=== PATIENT | female | born 1955 | race Caucasian/White ===

== ENCOUNTER 2018-11-09 16:17 | Emergency (ER) | payer OTHER ==
[~2018-11-09] VITALS: Ht 167.6 cm; Wt 66.0 kg
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
--- NOTE | 2018-11-09 16:45 | NUR ---
PT IN XRAY AT THIS TIME.
--- NOTE | 2018-11-09 17:23 | NUR ---
PT RESTING IN [facility]. PT AOX4. RESPS EVEN AND UNLABORED. PT'S FAMILY AT BEDSIDE. BP AND SPO2 MONITORS IN PLACE. CALL LIGHT WITHIN REACH. AWAITING DC.
[2018-11-09 17:25] VITALS: BP 104/67
--- NOTE | 2018-11-09 17:25 | NUR ---
EDT APPLIED SLING AT BEDSIDE AT THIS TIME. PT TOLERATED WELL.
[2018-11-09] MEDS ORDERED: OXYcodone/APAP 10/325MG TABLET PO ONE (17:30)
--- NOTE | 2018-11-09 17:30 | NUR ---
PT'S PAIN LEVEL INCREASED 6/10 AT THIS TIME. EDMD ROM AWARE. AWAITING MED ORDER.
[2018-11-09] MEDS ORDERED: OXYcodone/APAP 10/325MG TABLET ONE (17:36)
--- NOTE | 2018-11-09 17:42 | NUR ---
PT MEDICATED PER EMAR. PT TOLERATED WELL. PT AOX4. RESPS EVEN AND UNLABORED.
--- NOTE | 2018-11-09 17:48 | NUR ---
TASK RN: DC EDUCATION PROVIDED, PT DEMONSTRATES UNDERSTANDING. PT AMBULATED STEADILY TO DC WITH RN AND FAMILY. FAMILY TO TRANSPORT PT HOME.
== END 2018-11-09 17:57 | disposition home or self-care (01) ==
LOC: ED 17:51
DX: S42.292A Other displaced fracture of upper end of left humerus, initial encounter for closed fracture (principal); W19.XXXA Unspecified fall, initial encounter; Y93.89 Activity, other specified; Y92.89 Other specified places as the place of occurrence of the external cause; Y99.8 Other external cause status
CPT/HCPCS: 99283

== ENCOUNTER 2020-07-31 13:18 | Inpatient (IN) | payer OTHER ==
[~2020-07-31] VITALS: Ht 167.6 cm; Wt 67.0 kg
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
[2020-07-31] MEDS ORDERED: HYDROcodone/APAP 5/325 TABLET ONE (14:23)
[2020-07-31] MEDS ORDERED: HYDROcodone/APAP 5/325 TABLET PO ONE (14:30)
--- NOTE | 2020-07-31 15:10 | NUR ---
PT SITTING UPRIGHT WITH AT BEDSIDE. PT ON CELL PHONE. AARON PATEL AND [place] AT BEDSIDE TO APPLY KNEE IMMOBILIZER. ERP AT BEDSIDE TO DISCUSS D/C PLAN VS SURGERY. PT DENIES ANY NEEDS AT THIS TIME, CALL LIGHT WITHIN REACH, FALL PRECAUTIONS IN PLACE.
--- NOTE | 2020-07-31 15:50 | NUR ---
PT REFUSES ADDITONAL PAIN MEDICATION AND IV INSERTION AT THIS POINT.
--- NOTE | 2020-07-31 16:11 | NUR ---
PT SITTING UP IN [facility], RETURNED FROM CT. PT STATES PAIN REMAINS THE SAME BUT DENIES ADDITIONAL MEDICATION AT THIS TIME. PT DECLINES ANY ADDITIONAL NEEDS AT THIS TIME, FALL PRECAUTIONS IN PLACE, CALL LIGHT WITHIN REACH.
[2020-07-31 16:30] LABS: BASOPHILS # (AUTO) 0.03 x10^3/uL (0-0.1); BASOPHILS % (AUTO) 0 % (0-1); EOSINOPHILS % (AUTO) 1 % (1-7); LYMPHOCYTES # (AUTO) 0.77 x10^3/uL (1-3.4); LYMPHOCYTES % (AUTO) 8 % (22-44); MD NO; MEAN CORPUSCULAR HEMOGLOBIN 30.6 pg (27.0-34.8); MEAN CORPUSCULAR HGB CONC 33.7 g/dL (32.4-35.8); MEAN PLATELET VOLUME 8.6 fL (7.4-10.4); MONOCYTES # (AUTO) 0.59 x10^3/uL (0.2-0.8); MONOCYTES % (AUTO) 6 % (2-9); NEUTROPHILS # (AUTO) 8.66 x10^3/uL (1.8-6.8); NEUTROPHILS % (AUTO) 85 % (42-75); PLATELET COUNT 213 x10^3/uL (130-400); RED BLOOD COUNT 4.38 x10^6/uL (3.82-5.3); RED CELL DISTRIBUTION WIDTH 13.7 % (9.6-15.2)
[2020-07-31 16:36] LABS: ALBUMIN 4.1 g/dL (3.4-5.0); ANION GAP 5 mmol/L (5-15); CALCIUM 9.3 mg/dL (8.5-10.1); CHLORIDE 108 mmol/L (98-107); CREATININE 0.88 mg/dL (0.55-1.02)
[2020-07-31 16:37] LABS: INTERNATIONAL NORMALIZED RATIO 1.04 (0.93-1.1); PROTHROMBIN TIME 10.7 Seconds (9.6-11.5)
--- NOTE | 2020-07-31 17:00 | NUR ---
PT SITTING UPRIGHT IN GURNEY CONVERSING WITH AND ERP AT BEDSIDE. PT COMPLAINS OF INCREASED PAIN, MD NOTIFIED, WILL MEDICATE PER EMAR. PT DRESSED IN GOWN AND WARM BLAKET PROVIDED. CALL LIGHT WITHIN REACH, FALL PRECAUTIONS IN PLACE.
[2020-07-31] MEDS ORDERED: ONDANSETRON ODT 4 MG PO PRN (17:30)
[2020-07-31] MEDS ORDERED: ACETAMINOPHEN 325 MG TABLET PO PRN (17:30)
[2020-07-31] MEDS ORDERED: SENNA/DOCUSATE TABLET PO PRN (17:30)
[2020-07-31] MEDS ORDERED: POLYETHYLENE GLYCOL 17 GM PACKET PO PRN (17:30)
[2020-07-31] MEDS ORDERED: ONDANSETRON 2MG/ML, 2ML IVPush PRN (17:30)
--- NOTE | 2020-07-31 17:31 | NUR ---
Pt to be admitted to 4N/SURG, room 476. Report called to SHAVON.
[2020-07-31] MEDS ORDERED: MORPHINE SULFATE 4 MG/ML, 1ML ONE (18:03)
[2020-07-31] MEDS: MORPHINE SULFATE 4 MG/ML, 1ML IVPush PRN ×2 (18:05→21:52)
[2020-07-31 18:42] VITALS: BP 111/75
[2020-07-31] MEDS: HYDROcodone/APAP 5/325 TABLET PO PRN (19:50)
[2020-08-01] MEDS: LACTATED RINGERS 1,000 ML IV SCH ×2 (00:08→20:00)
[2020-08-01 00:21] VITALS: BP 112/67
[2020-08-01] MEDS: HYDROcodone/APAP 5/325 TABLET PO PRN ×2 (01:43→19:41)
[2020-08-01 05:19] LABS: ANION GAP 5 mmol/L (5-15); CALCIUM 8.7 mg/dL (8.5-10.1); CHLORIDE 107 mmol/L (98-107); CREATININE 0.77 mg/dL (0.55-1.02)
[2020-08-01 05:27] LABS: BASOPHILS # (AUTO) 0.02 x10^3/uL (0-0.1); BASOPHILS % (AUTO) 0 % (0-1); EOSINOPHILS # (AUTO) 0.01 x10^3/uL (0-0.4); EOSINOPHILS % (AUTO) 0 % (1-7); LYMPHOCYTES # (AUTO) 0.99 x10^3/uL (1-3.4); LYMPHOCYTES % (AUTO) 16 % (22-44); MD NO; MEAN CORPUSCULAR HEMOGLOBIN 30.6 pg (27.0-34.8); MEAN CORPUSCULAR HGB CONC 33.9 g/dL (32.4-35.8); MEAN PLATELET VOLUME 8.8 fL (7.4-10.4); MONOCYTES # (AUTO) 0.58 x10^3/uL (0.2-0.8); MONOCYTES % (AUTO) 9 % (2-9); NEUTROPHILS # (AUTO) 4.62 x10^3/uL (1.8-6.8); NEUTROPHILS % (AUTO) 74 % (42-75); PLATELET COUNT 175 x10^3/uL (130-400); RED BLOOD COUNT 3.91 x10^6/uL (3.82-5.3); RED CELL DISTRIBUTION WIDTH 13.7 % (9.6-15.2)
[2020-08-01] MEDS: morphine SULFATE 10 MG/ML, 1ML IVPush PRN ×2 (06:02→09:40)
[2020-08-01 08:33] VITALS: BP 100/63
[2020-08-01 13:26] VITALS: BP 116/76
[2020-08-01] MEDS ORDERED: CHLORHEXIDINE 15 ML UDC ONE (13:43)
[2020-08-01] MEDS ORDERED: CHLORHEXIDINE 15 ML UDC MM ONE (14:00)
[2020-08-01] MEDS ORDERED: FENTANYL PF 250 MCG/5ML ONE ×2 (14:43→15:31)
[2020-08-01] MEDS ORDERED: PROPOFOL 50 ML ONE (14:43)
[2020-08-01] MEDS ORDERED: NEOSPORIN OINT, 15GM ONE (14:46)
[2020-08-01] MEDS ORDERED: BUPIVACAINE/PF 0.5% ONE (14:46)
[2020-08-01] MEDS ORDERED: EPINEPHRINE 1 MG/ML, 1ML ONE (14:46)
[2020-08-01] MEDS ORDERED: CEFAZOLIN 1,000 MG ONE (15:12)
[2020-08-01] MEDS ORDERED: DEXAMETHASONE 4 MG/ML, 1ML ONE (15:12)
[2020-08-01] MEDS ORDERED: ONDANSETRON 2MG/ML, 2ML ONE (15:12)
[2020-08-01] MEDS ORDERED: MIDAZOLAM 1 MG/ML, 2ML ONE (15:29)
[2020-08-01] MEDS ORDERED: LABETALOL 5MG/ML, 20ML IV PRN (15:30)
[2020-08-01] MEDS ORDERED: PROMETHAZINE 25 MG/ML, 1ML IVPush PRN (15:30)
[2020-08-01] MEDS ORDERED: DIAZEPAM 5 MG/ML, 2ML IVPush PRN (15:30)
[2020-08-01] MEDS ORDERED: ACETAMINOPHEN 325 MG TABLET PO PRN (15:30)
[2020-08-01] MEDS ORDERED: OXYcodone 5 MG/5 ML ORAL.SOL UDC PO PRN (15:30)
[2020-08-01] MEDS ORDERED: MEPERIDINE/PF 25MG/0.5ML IVPush PRN (15:30)
[2020-08-01] MEDS ORDERED: FENTANYL PF 100 MCG/2ML IV PRN (15:30)
[2020-08-01] MEDS ORDERED: BUPIVACAINE/EPI 0.5% 1:200K SQ ONE (15:30)
[2020-08-01] MEDS ORDERED: EPHEDRINE 50 MG/ML, 1ML IM PRN (15:30)
[2020-08-01] MEDS ORDERED: ONDANSETRON 2MG/ML, 2ML IVPush PRN (15:30)
[2020-08-01] MEDS ORDERED: DIPHENHYDRAMINE 50 MG/ML, 1ML IVPush PRN (15:30)
[2020-08-01] MEDS ORDERED: HYDROmorphone 1 MG/ML, 1ML INJ IVPush PRN (15:30)
[2020-08-01] MEDS ORDERED: EPHEDRINE 50 MG/ML, 1ML IVPush PRN (15:30)
[2020-08-01] MEDS ORDERED: OXYcodone 5 MG/5 ML ORAL.SOL UDC ONE (16:54)
[2020-08-01] MEDS ORDERED: FENTANYL PF 100 MCG/2ML ONE (16:54)
[2020-08-01] MEDS ORDERED: ONDANSETRON 2MG/ML, 2ML IV PRN (18:30)
[2020-08-01] MEDS ORDERED: HYDROcodone/APAP 7.5-325MG/15ML UDC PO PRN (18:30)
[2020-08-01] MEDS ORDERED: HYDROmorphone 2 MG/ML, 1ML IVPush PRN (18:30)
[2020-08-01 20:37] VITALS: BP 100/65
[2020-08-01] MEDS: KETOROLAC 30 MG/1 ML IV SCH (22:42)
[2020-08-01] MEDS: DOCUSATE 100 MG CAPSULE PO SCH (22:42)
[2020-08-01] MEDS: ASPIRIN 81 MG TABLET CHEW PO SCH (22:42)
[2020-08-01] MEDS: CEFAZOLIN PMX 1GM/50ML 50 ML IVPB SCH (23:19)
[2020-08-01 23:29] VITALS: BP 92/60
[2020-08-02 04:11] VITALS: BP 90/55
[2020-08-02 04:34] LABS: ANION GAP 4 mmol/L (5-15); BASOPHILS % (AUTO) 0 % (0-1); CALCIUM 8.2 mg/dL (8.5-10.1); CHLORIDE 108 mmol/L (98-107); EOSINOPHILS % (AUTO) 0 % (1-7); LYMPHOCYTES # (AUTO) 0.42 x10^3/uL (1-3.4); LYMPHOCYTES % (AUTO) 6 % (22-44); MD NO; MEAN CORPUSCULAR HEMOGLOBIN 30.5 pg (27.0-34.8); MEAN CORPUSCULAR HGB CONC 33.3 g/dL (32.4-35.8); MEAN PLATELET VOLUME 8.6 fL (7.4-10.4); MONOCYTES # (AUTO) 0.61 x10^3/uL (0.2-0.8); MONOCYTES % (AUTO) 8 % (2-9); NEUTROPHILS # (AUTO) 6.57 x10^3/uL (1.8-6.8); NEUTROPHILS % (AUTO) 86 % (42-75); PLATELET COUNT 148 x10^3/uL (130-400); RED BLOOD COUNT 3.59 x10^6/uL (3.82-5.3); RED CELL DISTRIBUTION WIDTH 13.6 % (9.6-15.2)
[2020-08-02 04:35] LABS: CREATININE 0.64 mg/dL (0.55-1.02)
[2020-08-02] MEDS ORDERED: ENOXAPARIN 40 MG/0.4 ML SQ SCH (06:00)
[2020-08-02] MEDS: HYDROcodone/APAP 5/325 TABLET PO PRN ×2 (06:01→10:33)
[2020-08-02] MEDS: KETOROLAC 30 MG/1 ML IV SCH (06:28)
[2020-08-02] MEDS: CEFAZOLIN PMX 1GM/50ML 50 ML IVPB SCH (06:28)
[2020-08-02 06:57] VITALS: BP 100/64
[2020-08-02] MEDS: DOCUSATE 100 MG CAPSULE PO SCH (08:27)
[2020-08-02] MEDS: ASPIRIN 81 MG TABLET CHEW PO SCH (08:27)
[2020-08-02] MEDS ORDERED: HYDR-3240 PO (08:39)
[2020-08-02] MEDS ORDERED: ASPI-515 PO (09:39)
[2020-08-02 10:50] VITALS: BP 106/70
== END 2020-08-02 11:25 | disposition home or self-care (01) | DRG 489 ==
LOC: ED 16:44 → EDIP 17:09 → 4NE 18:22 → DCLOUNGE 08-02 11:11
PROVIDERS: ADMIT Family Medicine; ATTEND Family Medicine
PROC: 0SQD0ZZ Repair Left Knee Joint, Open Approach (ICD-10-PCS; 2020-08-01)
PROC: 0QSH04Z Reposition Left Tibia with Internal Fixation Device, Open Approach (ICD-10-PCS; principal; 2020-08-01 10:00)
DX: S82.142A Displaced bicondylar fracture of left tibia, initial encounter for closed fracture (principal); W18.39XA Other fall on same level, initial encounter; D72.829 Elevated white blood cell count, unspecified; S83.242A Other tear of medial meniscus, current injury, left knee, initial encounter; Z20.828 Contact with and (suspected) exposure to other viral communicable diseases; Y93.89 Activity, other specified; Y92.89 Other specified places as the place of occurrence of the external cause; Y99.8 Other external cause status
CPT/HCPCS: 36415; 73560; 73564; 76000; 99285; S0020; 71045; 80048; 82040; 82306; 85025; 85610; 85730; 87635; 93005; C1713; G0378; J0171; J0690; J1100; J1650; J1885; J2250; J2405; J2704; J3010; J2270; J7120